=== PATIENT | female | born 1940 ===

== ENCOUNTER 2018-12-18 18:08 | Emergency (ER) | payer MEDICARE ==
[2018-12-18] MEDS ORDERED: Sodium Chloride 0.9% 1,000 ML IV ONE (19:36)
[2018-12-18 20:02] LABS: BASO % 0.1 % (0.0-2.0); EOS # 0.2 K/uL (0.0-0.7); HEMOGLOBIN 13.6 g/dL (11.0-16.0); LYMPH # 1.7 K/uL (1.0-4.3); LYMPH % 18.2 % (20.0-40.0); MEAN CELL VOLUME 87.1 fL (81.0-99.0); MEAN CORPUSCULAR HEMOGLOBIN 29.2 pg (27.0-31.0); MEAN CORPUSCULAR HGB CONC 33.5 g/dL (33.0-37.0); MEAN PLATELET VOLUME 7.9 fL (7.2-11.7); MONO # 0.5 K/uL (0.0-0.8); MONO % 5.7 % (0.0-10.0); NEUT # 7.1 K/uL (1.8-7.0); RBC 4.68 Mil/uL (3.80-5.20); RED CELL DISTRIBUTION WIDTH 13.9 % (11.5-14.5); WHITE BLOOD COUNT 9.6 K/uL (4.8-10.8)
[2018-12-18 20:04] VITALS: BP 91/45; PULSE 75; RESP 16; TEMP 98.1; O2SAT 94
[2018-12-18 20:11] LABS: SQUAMOUS EPITHIAL 5 /hpf (0-5); URINE BILIRUBIN NEGATIVE (NEGATIVE); URINE BLOOD 2+ (NEGATIVE); URINE CLARITY Hazy (Clear); URINE COLOR Amber (YELLOW); URINE GLUCOSE (UA) NORMAL (Normal); URINE LEUKOCYTE ESTERASE 2+ Leu/uL (Negative); URINE PROTEIN NEGATIVE (NEGATIVE)
[2018-12-18 20:13] LABS: ALB/GLOB RATIO 1.5 (1.0-2.1); ALBUMIN 4.2 g/dL (3.5-5.0); ALT/SGPT 43 U/L (9-52); AST/SGOT 47 U/L (14-36); BLOOD UREA NITROGEN 36 mg/dL (7-17); CALCIUM 9.1 mg/dl (8.6-10.4); GFR NON-AFRICAN AMERICAN 31
[2018-12-18 20:25] LABS: B-TYPE NATRIURETIC PEPTIDE 406 pg/mL (0-900)
--- NOTE | 2018-12-18 20:37 | C.PDOC ---
History Of Present Illness 78 year old female presents to the ED c/o abdominal pain associated with nausea and vomiting. Patient reports she recently took a two step anti amoeba treatment called Pazidol that was sent from [facility] by her sisters that still live there. Patient was sent the medication to treat possible blood in urine and stool. Patient grew up in [facility] but denies having any diarrheal illness. Patient took 1st tablet 2 days ago, felt woozy afterwards and symptoms resolved. Patient reports yesterday she took 2nd tablet and immediately felt abdominal pain with nausea and vomiting. Patient reports symptoms resolved spontaneously overnight a nd today is asymptomatic. Patient denies fever, chills, diarrhea, back pain, SOB, CP, recent travel. Time Seen by Provider: 12/18/18 19:13 Chief Complaint (Nursing): Dizziness/Lightheaded History Per: Patient History/Exam Limitations: no limitations Onset/Duration Of Symptoms: Days (2) Recent travel outside of the [place]: No Additional History Per: Patient Past Medical History Reviewed: Historical Data, Nursing Documentation, Vital Signs Vital Signs: Last Vital Signs Temp 98.1 F 12/18/18 19:59 Pulse 75 12/18/18 19:59 Resp 16 12/18/18 19:59 BP 91/45 L 12/18/18 19:59 Pulse Ox 94 L 12/18/18 19:59 Primary Care Provider: David Vicente - Medical History PMH: Hypercholesterolemia Surgical History: No Surg Hx Family History: States: Unknown Family Hx - Social History Hx Alcohol Use: No Hx Substance Use: No - Immunization History Hx Tetanus Toxoid Vaccination: No Hx Influenza Vaccination: Yes Hx Pneumococcal Vaccination: Yes Review Of Systems Constitutional: Negative for: Fever, Chills Cardiovascular: Negative for: Chest Pain Respiratory: Negative for: Shortness of Breath Gastrointestinal: Positive for: Nausea, Vomiting, Abdominal Pain. Negative for: Diarrhea Genitourinary: Negative for: Dysuria, Hematuria Musculoskeletal: Negative for: Back Pain Skin: Negative for: Rash Neurological: Negative for: Weakness, Numbness, Headache, Dizziness Physical Exam - Physical Exam Appears: Non-toxic, No Acute Distress, Other (elderly female, appears younger than states age) Skin: Normal Color, Warm, Dry Head: Atraumatic, Normacephalic Eye(s): bilateral: Normal Inspection Oral Mucosa: Moist Neck: Normal ROM, Supple Chest: Symmetrical Cardiovascular: Rhythm Regular Respiratory: Normal Breath Sounds, No Rales, No Rhonchi, No Wheezing Gastrointestinal/Abdominal: Soft, No Tenderness, No Guarding, No Rebound Extremity: Normal ROM, No Tenderness, No Swelling Neurological/Psych: Oriented x3, Normal Speech, Normal Cognition Gait: Steady ED Course And Treatment - Laboratory Results Result Diagrams: 12/18/18 19:53 12/18/18 19:53 Lab Results: Troponin I < 0.0120 ng/mL (0.00-0.120) 12/18/18 19:53 NT-Pro-B Natriuret Pep 406 pg/mL (0-900) 12/18/18 19:53 Total Bilirubin 1.1 mg/dL (0.2-1.3) 12/18/18 19:53 AST 47 U/L (14-36) H 12/18/18 19:53 ALT 43 U/L (9-52) 12/18/18 19:53 Alkaline Phosphatase 55 U/L (38-126) 12/18/18 19:53 Total Protein 7.0 g/dL (6.3-8.3) 12/18/18 19:53 Albumin 4.2 g/dL (3.5-5.0) 12/18/18 19:53 Globulin 2.8 gm/dL (2.2-3.9) 12/18/18 19:53 Albumin/Globulin Ratio 1.5 (1.0-2.1) 12/18/18 19:53 Urine Color Peg (YELLOW) 12/18/18 19:53 Urine Clarity Hazy (Clear) 12/18/18 19:53 Urine pH 5.0 (5.0-8.0) 12/18/18 19:53 Ur Specific [place] 1.020 (1.003-1.030) 12/18/18 19:53 Urine Protein Negative mg/dL (NEGATIVE) 12/18/18 19:53 Urine Glucose (UA) Normal mg/dL (Normal) 12/18/18 19:53 Urine Ketones Negative mg/dL (NEGATIVE) 12/18/18 19:53 Urine Blood 2+ (NEGATIVE) H 12/18/18 19:53 Urine Nitrate Negative (NEGATIVE) 12/18/18 19:53 Urine Bilirubin Negative (NEGATIVE) 12/18/18 19:53 Urine Urobilinogen 2.0 mg/dL (0.2-1.0) H 12/18/18 19:53 Ur Leukocyte Esterase 2+ Francis/uL (Negative) H 12/18/18 19:53 Urine WBC (Auto) 42 /hpf (0-5) H 12/18/18 19:53 Urine RBC (Auto) 18 /hpf (0-3) H 12/18/18 19:53 Ur Squamous Epith Cells 5 /hpf (0-5) 12/18/18 19:53 Hyaline Casts 3-5 /lpf (0-2) H 12/18/18 19:53 Lab Interpretation: Normal (ua 42 WBC's, neg nitrites) ECG: Interpreted By Me ECG Rhythm: Sinus Rhythm ECG Interpretation: Normal Rate From EC O2 Sat by Pulse Oximetry: 94 Pulse Ox Interpretation: Normal - Radiology CXR: Interpreted by Me CXR Interpretation: Yes: No Acute Disease, Other Reevaluation Time: 20:37 Reassessment Condition: Unchanged (remains asymptomatic) Medical Decision Making Medical Decision Making: prob adverse drug rxn to Albendazole 2 step tx from [facility] NO diarrheal illness NO local blood/stool tests ?? if urine tests detect Prob chronically colonized since childhood in [facility] belly benign no futher tx indicated opt f/u. Disposition Doctor Will See Patient In The: Office Counseled Patient/Family Regarding: Studies Performed, Diagnosis - Disposition Referrals: [facility] [Outside] [facility] [Outside] [facility] [Outside] [place] [facility] [Outside] Disposition: HOME/ ROUTINE Disposition Time: 20:38 Condition: GOOD Additional Instructions: examenes del jerardo NORMALES sigue con [facility] necesario Instructions: Adverse Drug Reactions, Adult Forms: [facility] (Palauan) Print Language: BARBADIAN - Clinical Impression Clinical Impression: Adverse reaction to drug - Scribe Statement The provider has reviewed the documentation as recorded by the Scribe Sinan Millan All medical record entries made by the Scribe were at my direction and personally dictated by me. I have reviewed the chart and agree that the record accurately reflects my personal performance of the history, physical exam, medical decision making, and the department course for this patient. I have also personally directed, reviewed, and agree with the discharge instructions and disposition.
--- NOTE | 2018-12-19 09:01 | RAD ---
Chest x-ray single frontal view HISTORY: Shortness of breath. Comparison: None available. FINDINGS: Mild venous congestion. Mild right midlung atelectasis. Enlarged ectatic aorta. Prominent mediastinum. Right paratracheal opacity may represent prominent vasculature. Heart size within normal limits. Atherosclerotic calcification at the aortic knob. Degenerative changes in the spine and shoulders. IMPRESSION: Mild venous congestion. Mild right midlung atelectasis. Enlarged ectatic aorta. Prominent mediastinum. Right paratracheal opacity may represent prominent vasculature.
--- NOTE | 2018-12-20 00:27 | CARD ---
APPROVED REPORT Date of service: 12/18/2018 EKG Measurement Heart [id number] <Conclusion> Normal sinus rhythm Nonspecific ST and T wave abnormality Abnormal ECG
== END 2018-12-18 20:51 | disposition home or self-care (01) ==
LOC: C.ER 18:08
DX: T88.7XXA Unspecified adverse effect of drug or medicament, initial encounter (principal); T50.995A Adverse effect of other drugs, medicaments and biological substances, initial encounter; Y92.89 Other specified places as the place of occurrence of the external cause; E78.00 Pure hypercholesterolemia, unspecified
CPT/HCPCS: 71045; 80053; 81001; 82948; 83880; 84484; 85025; 96360; 99285; J7030